=== PATIENT | male | born 1975 | race African-American/Black ===

== ENCOUNTER 2021-02-02 13:36 | Outpatient (CLI) | payer OTHER | END 2021-02-02 13:37 | disposition home or self-care (01) | LOC: TBSIIMAG 13:36 | PROVIDERS: ATTEND Surgery | DX: M50.30 Other cervical disc degeneration, unspecified cervical region (principal); M50.20 Other cervical disc displacement, unspecified cervical region; M47.812 Spondylosis without myelopathy or radiculopathy, cervical region; M48.02 Spinal stenosis, cervical region; Z98.1 Arthrodesis status | CPT/HCPCS: 72141 ==